=== PATIENT | female | born 2000 | race Caucasian/White ===

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

== ENCOUNTER → 2019-01-24 16:38 | Outpatient (CLI) | payer OTHER, SELFPAY ==
[2019-01-24 22:34] LABS: Urine N gonorrhoeae NOT DETECTED
[2019-01-24 22:50] LABS: Urine Chlamydia NOT DETECTED
== END ==
PROVIDERS: PCP Family Medicine; Visit Provider Physician Assistant
DX: R30.0 Dysuria (principal); N39.0 Urinary tract infection, site not specified
CPT/HCPCS: 87086; 87210; 87491; 87591

== ENCOUNTER → 2020-04-26 08:58 | Outpatient (CLI) | payer OTHER, SELFPAY ==
--- NOTE | 2020-04-26 09:00 | DI.RAD.S_ITS ---
PROCEDURE: XR ANKLE RT MIN 3V INDICATIONS: R lateral ankle, 5th metatarsal base pain post fall TECHNIQUE: 3 views of the ankle were acquired. COMPARISON: None. FINDINGS: Bones: Linear calcification along the lateral aspect of the distal calcaneus on the frontal view is noted. There is mild soft tissue swelling along the lateral aspect of the foot. Soft tissues: No tibiotalar joint effusion. Achilles tendon appears normal. IMPRESSION: Linear calcification along the lateral aspect of the distal calcaneus noted only on the frontal view concerning for small avulsion fracture. Dictated by: Edwin Garnica D.O. on 04/26/2020 at 8:47 Approved by: Edwin Garnica D.O. on 04/26/2020 at 8:51
== END ==
PROVIDERS: PCP Family Medicine; Referring Provider Nurse Practitioner; Visit Provider Nurse Practitioner
DX: M25.571 Pain in right ankle and joints of right foot (principal)
CPT/HCPCS: 73610

== ENCOUNTER → 2020-12-28 17:28 | Outpatient (CLI) | payer OTHER, SELFPAY ==
[2020-12-28 18:25] LABS: COVID19 -Nasal RAPID Negative (Negative)
== END ==
PROVIDERS: PCP Family Medicine; Visit Provider Physician Assistant
DX: R09.81 Nasal congestion (principal); R51.9 Headache, unspecified; Z20.822 Contact with and (suspected) exposure to COVID-19
CPT/HCPCS: 87635

== ENCOUNTER 2025-03-04 16:23 | Emergency (ER) | payer OTHER, SELFPAY ==
[2025-03-04 16:27] VITALS: BP 143/95; PULSE 87; RESP 18; TEMP 37.1; O2SAT 97; BMI 26.6
[2025-03-04 16:53] LABS: Add Manual Diff / Slide Review NO; Hematocrit 41.4 % (36-46); Hemoglobin 14.4 g/dL (12.0-16.0); Lymphocytes Absolute Auto 2000 /uL (1100-4500); Mean Corpuscular HGB Conc 34.8 % (30-36); Mean Corpuscular Hemoglobin 30.6 PG (26-34); Mean Corpuscular Volume 88.0 fL (80-100); Platelet Count 353 X10^3/uL (150-400)
[2025-03-04 17:02] LABS: Alanine Aminotransferase 14 IU/L (<35); Albumin 5.0 g/dL (3.5-5.0); Albumin Globulin Ratio 1.4 (1.0-2.8); Alkaline Phosphatase 64 U/L (38-126); Blood Urea Nitrogen 9 mg/dL (7-17); Calcium 9.3 mg/dL (8.4-10.2); Carbon Dioxide 22 mmol/L (22-32); Chloride 104 mmol/L (98-107); Estimated Glomerular Filt Rate > 60 mL/min (>60); Globulin 3.5 g/dL (1.7-4.1); Glucose 92 mg/dL (70-99); HEMOLYSIS < 15 (0-50); Lipase 62 U/L (23-300); Potassium 3.6 mmol/L (3.4-5.1); Sodium 138 mmol/L (137-145); Total Protein 8.5 g/dL (6.3-8.2)
[2025-03-04 18:47] VITALS: BP 143/83; PULSE 82; O2SAT 98
[2025-03-04 18:54] VITALS: BP 143/83; PULSE 85; RESP 16; TEMP 36.7; O2SAT 97
--- NOTE | 2025-03-04 18:58 | PC.NURSE ---
Pt reports nausea and vomiting since Wednesday 02/28. Reports nausea/vomiting is worse in AM. Some associated lightheadedness and diarrhea, but inconsistent. Reports a small amount of leatha blood in stool today (03/04). Pt also reports that she had nasal drainage that had a small amount of blood in it. Reports LMP wa Feb 19- and she is not on any form of control. Reports recently prescribed Ativan by [facility] for anxiety and just started on Sertraline on Wednesday 02/28 but nausea/vomiting started before she began taking the medication. LBM was today 03/04 in the afternoon.
[2025-03-04 19:00] VITALS: BP 114/77; PULSE 77; RESP 17; O2SAT 98
[2025-03-04 19:08] LABS: Culture Indicated Urine Cult Not Indicated
[2025-03-04 19:30] VITALS: BP 136/80; PULSE 77; RESP 15; O2SAT 99
--- NOTE | 2025-03-04 19:42 | ED.NAVMDI ---
HPI - Nausea/Vomiting/Diarrhea General Chief complaint: Nausea/Vomiting/Diarrhea Stated complaint: Vomit, brown coloring, blood in stool Time Seen by Provider: 03/04/25 19:41 Source: patient Mode of arrival: Ambulatory History of Present Illness HPI Narrative: 24-year-old female patient with a history of anxiety and environmental abnormalities allergies who complains of possible blood in her vomit since Monday. She was diagnosed at an urgent care with a viral syndrome. She had an anxiety attack 3 days ago. Patient complains of brown colored vomit and some bright red blood in her stool. Also, she has had recurrence of panic attacks over the weekend and was prescribed lorazepam, 0.5 mg as needed in the [place] emergency room 2 or 3 days ago. She has not tried to take more than 1 pill. Related Data Home Medications ?Medication ?Instructions ?Recorded ?Confirmed lorazepam 1 mg tablet 1 mg PO DAILY PRN 03/04/25 03/04/25 ondansetron 4 mg disintegrating 4 mg PO Q8H PRN 03/04/25 03/04/25 tablet Previous Rx's ?Medication ?Instructions ?Recorded sertraline 25 mg tablet 25 mg PO DAILY #90 tabs 02/27/25 Allergies Allergy/AdvReac Type Severity Reaction Status Date / Time No Known Drug Allergies Allergy Verified 03/04/25 16:27 Review of Systems Review of Systems ROS Unobtainable: All systems reviewed & are unremarkable except as noted in HPI and below Gastrointestinal Gastrointestinal: Reports as per HPI Patient History Medical History (Updated 03/04/25 @ 19:56 by Richard Gomes MD) Anxiety Seasonal allergies Social History Smoking Status: Never smoker Smoking Status: Never smoker Exam Narrative Exam Narrative: General: Alert and conversant. No distress. Appears well nourished and well hydrated Lungs: Clear to auscultation with good air movement. No wheezing, rales or rhonchi. No respiratory distress Cardiac: Regular rate and rhythm with no appreciable murmur or gallop Abdomen: Soft, nontender with no distention or masses. Normal bowel sounds. No rebound or guarding Rectal: Few small flecks of blood in the rectum with no stool. Heme positive. Musculoskeletal: Exam of the extremities, axial spine and ribcage reveals no deformity, bony tenderness or swelling. Range of motion intact Neuro: Alert and oriented. Cranial nerves, motor, sensory and cerebellar all grossly intact. No focal deficit Skin: Warm and normal color. No rashes Psychological: Normal affect and interaction. No evidence of delusion or psychosis. Normal mood. Initial Vital Signs Initial Vital Signs: Vital Signs Temperature 98.8 F 03/04/25 16:27 Pulse Rate 87 03/04/25 16:27 Respiratory Rate 18 03/04/25 16:27 Blood Pressure 143/95 H 03/04/25 16:27 Pulse Oximetry 97 03/04/25 16:27 Oxygen Delivery Method Room Air 03/04/25 16:27 Course Orders Ordered: ED Orders 03/04/25 16:42 Complete Blood Count AUTO DIFF Stat Comprehensive Metabolic Panel Stat Lipase Stat 03/04/25 18:35 Urine Microscopic Stat Discontinued Medications Ondansetron HCl (Ondansetron 4 Mg/2 Ml Inj) 4 mg IV NOW PRN PRN Reason: Nausea And Vomiting Ondansetron HCl (Ondansetron 4 Mg Odt) 4 mg PO NOW PRN PRN Reason: Nausea And Vomiting Vital Signs Vital signs: Vital Signs - 8 hr 03/04/25 16:27 03/04/25 18:47 03/04/25 18:47 Temperature 98.8 F Pulse Rate 87 82 Respiratory Rate 18 Blood Pressure 143/95 H 143/83 H Pulse Oximetry 97 98 Oxygen Delivery Method Room Air 03/04/25 18:54 03/04/25 19:00 03/04/25 19:00 Temperature 98.1 F Pulse Rate 85 77 Respiratory Rate 16 17 Blood Pressure 143/83 H 114/77 Pulse Oximetry 97 98 Oxygen Delivery Method Room Air 03/04/25 19:30 03/04/25 19:30 Temperature Pulse Rate 77 Respiratory Rate 15 Blood Pressure 136/80 Pulse Oximetry 99 Oxygen Delivery Method Room Air MDM - Nausea/Vomiting/Diarrhea Lab Data Attestation: I reviewed the patient's lab results. Lab results narrative: CBC and CMP unremarkable. 03/04/25 16:42 03/04/25 16:42 Labs: Lab Results 03/04/25 03/04/25 Range/Units 16:42 18:35 WBC 10.0 (4.5-11.0) X10^3/uL RBC 4.70 (4.0-5.2) X10^6/uL Hgb 14.4 (12.0-16.0) g/dL Hct 41.4 (36-46) % MCV 88.0 (80-100) fL MCH 30.6 (26-34) PG MCHC 34.8 (30-36) % RDW 12.0 (11.6-14.8) % Plt Count 353 (150-400) X10^3/uL Neut % (Auto) 73.2 (50-75) % Lymph % (Auto) 20.1 L (25-40) % Randall % (Auto) 6.0 (3-14) % Eos % (Auto) 0.2 L (2-4) % Baso % (Auto) 0.5 (0-2) % Neut # (Auto) 7300 H (7422-0279) /uL Lymph # (Auto) 2000 (3700-7293) /uL Randall # (Auto) 600 (0-900) /uL Eos # (Auto) 0 (0-450) /uL Baso # (Auto) 0 (0-100) /uL Sodium 138 (137-145) mmol/L Potassium 3.6 (3.4-5.1) mmol/L Chloride 104 (98-107) mmol/L Carbon Dioxide 22 (22-32) mmol/L BUN 9 (7-17) mg/dL Creatinine 0.69 (0.52-1.04) mg/dL Estimated GFR > 60 (>60) mL/min BUN/Creatinine Ratio 13.0 (6-22) Glucose 92 (70-99) mg/dL Calcium 9.3 (8.4-10.2) mg/dL Total Bilirubin 1.0 (0.2-1.3) mg/dL AST 20 (14-36) IU/L ALT 14 (<35) IU/L Alkaline Phosphatase 64 (38-126) U/L Total Protein 8.5 H (6.3-8.2) g/dL Albumin 5.0 (3.5-5.0) g/dL Globulin 3.5 (1.7-4.1) g/dL Albumin/Globulin Ratio 1.4 (1.0-2.8) Lipase 62 (23-300) U/L Urine RBC 1-5/hpf (0-5/HPF) Urine WBC 0-1/hpf (0-5/HPF) Ur Squamous Epith Cells 0-1 /hpf (0-5/HPF) Urine Bacteria Few (2-10) H (None) Ur Culture Indicated? Cult not indicated Vol Urine Centrifuged 10ml (spun) Point of Care Testing Test Results Negative Stool Occult Blood Positive Urine Dip Bedside Urine Glucose Negative Bedside Urine Bilirubin - Negative Bedside Urine Ketone +++ 80 Urine Specific Dawson 1.015 Bedside Urine Occult Blood - Negative Bedside Urine pH 6.5 Bedside Urine Protein - Negative Bedside Urine Urobilinogen - Negative Bedside Urine Nitrite - Negative Bedside Urine Leukocytes - Negative Esterase MDM Narrative Medical decision making narrative: Patient has symptoms of mild viral gastroenteritis but did see some blood on the toilet paper earlier today which is confirmed on physical exam. However feel this is not significant lower GI bleeding but probably part of her diarrhea, I bloody diarrhea but mild. Plan will be to continue her antiemetics, hydration and supportive care. Monitor symptoms and follow up with her doctor. Most importantly follow up if she continues to pass blood. In that case she may need colonoscopy for return to the ER if worse Discharge Plan Departure Patient Disposition: Home Clinical Impression: Viral gastroenteritis, Bloody diarrhea, Panic attack Instructions: Viral Gastroenteritis, DI for Panic Disorder Activity Restrictions/Additional Instructions: Plan: Hydration, rest and supportive care and monitor symptoms. Follow up with your doctor if not improving. Especially follow up if you continue to have blood in your stool. Return to the ER if worse. For panic attacks, try deep breathing and other techniques along with prescribed medication. May take more than 1 pill if needed. Return to the ER if panic attacks or not controlled. Prescriptions: No Action lorazepam 1 mg tablet 1 mg PO DAILY PRN ondansetron 4 mg tablet,disintegrating 4 mg PO Q8H PRN sertraline 25 mg tablet 25 mg PO DAILY Qty: 90 0RF Referrals: Cornelia Hogan FNP-BC [Primary Care Provider, Family Practice] Stand Alone Forms: Patient Portal/API
== END 2025-03-04 20:20 | disposition home or self-care (01) ==
PROVIDERS: Emergency Provider Emergency Medicine; PCP Nurse Practitioner Family
DX: A08.4 Viral intestinal infection, unspecified (principal); F41.0 Panic disorder [episodic paroxysmal anxiety]; R19.7 Diarrhea, unspecified
CPT/HCPCS: 36415; 80053; 81003; 81015; 81025; 82272; 83690; 85025; 99283; 99284